=== PATIENT | male | born 1940 | race Two or more races ===

== ENCOUNTER 2025-09-08 15:12 | Emergency (ER) | payer OTHER ==
[~2025-09-08] VITALS: Ht 167.6 cm; Wt 62.0 kg
[2025-09-08 15:15] VITALS: O2SAT 99
[2025-09-08 16:18] LABS: BASOPHILS % 0.2 % (0.0-2.0); EOSINOPHILS % 0.1 % (0.0-5.0); HEMATOCRIT. 41.0 % (42.0-52.0); HEMOGLOBIN. 13.8 g/dL (14.0-18.0); LYMPHOCYTES % 23.9 % (20.0-50.0); MEAN PLATELET VOLUME 8.8 fl (7.4-10.4); MONOCYTES % 13.6 % (2.0-8.0); NEUTROPHILS % 62.2 % (40.0-76.0); PLATELET 219 x1000/uL (130-400); RED BLOOD CELL COUNT 4.28 mill/uL (4.7-6.1); RED CELL DISTRIBUTION WIDTH 13.6 % (11.6-14.6)
[2025-09-08 16:35] LABS: CREATININE 0.9 mg/dL (0.6-1.3); UREA NITROGEN BLOOD 17 mg/dL (9-23)
[2025-09-08 16:36] LABS: TROPONIN I HIGH SENSITIVITY 7 ng/L (3.0-53)
[2025-09-08] MEDS: FUROSEMIDE 40MG/4ML VIAL IVP ONE (17:14)
[2025-09-08] MEDS: METHYLPREDNISOLONE SOD SUCC 125MG/2ML (ACT-O-VIAL) IV ONE (17:42)
[2025-09-08] MEDS: IPRATROPIUM/ALBUTEROL 0.5-3(2.5)MG/3ML NEB HHN ONE (18:05)
[2025-09-08 18:20] VITALS: PULSE 123; RESP 18
[2025-09-08] MEDS: DILTIAZEM HCL 5MG/ML 5ML VIAL IV ONE ×2 (18:52→21:37)
[2025-09-08] MEDS: POTASSIUM CHLORIDE 20MEQ/PACKET PO ONE (21:34)
[2025-09-09 00:39] VITALS: BP 112/72; PULSE 94; RESP 18; TEMP 37.4; O2SAT 97
== END 2025-09-09 00:56 | disposition short-term general hospital (02) ==
LOC: ER 15:12 → CMPBEDREQ 09-09 08:45
DX: J44.1 Chronic obstructive pulmonary disease with (acute) exacerbation (principal); I48.91 Unspecified atrial fibrillation; E87.6 Hypokalemia; I11.0 Hypertensive heart disease with heart failure
CPT/HCPCS: 99291; 96374; 96375; 80048; 83880; 85025; 84484; 36415; 71045; 94640; 93005; 96376; J2919; J3490; J1938